=== PATIENT | male | born 1960 | race Caucasian/White ===

== ENCOUNTER 2022-06-30 11:31 | Emergency (ER) | payer SELFPAY ==
[2022-06-30 11:37] VITALS: BP 183/101; PULSE 90; RESP 14; TEMP 36.7; O2SAT 97; BMI 26.6
--- NOTE | 2022-06-30 11:43 | W.ED.GENADLT ---
HPI - General Adult General: Chief complaint: Skin/Abscess/Foreign Body Stated complaint: swelling to both hands Time Seen by Provider: 06/30/22 11:36 History of Present Illness: Mr. Bunch is a 62-year-old gentleman with history of bipolar disorder and COPD presenting to the emergency department for bilateral hand pain and swelling with redness and skin lesions. He reports onset of symptoms approximately 5 weeks ago. He did have contact with a dog that was not lying on his hands however denies specific puncture wound. Since that time he describes a burning painful rash associated with hand swelling which has persisted. Symptoms are worse with palpation and movement. He does also note worsening burning with hot water. Feels generally unwell but no specific signs of systemic illness. Denies similar episodes or skin lesions in the past. No other specific changes in health, exacerbating, or alleviating factors identified. Onset (ago): week(s) Severity: severe Quality: burning and aching Relieving factors: none Exacerbating factors: movement and other (Hot water) Associated symptoms: Reports malaise Review of Systems General: Reports: 10 or more systems reviewed and unremarkable except in HPI and below Const: Reports: malaise [facility] ED PFSH: Medical History Bipolar 1 disorder COPD (chronic obstructive pulmonary disease) Social History Smoking and tobacco status: current every day smoker Physical Exam Const: COMMON NORMALS: alert GENERAL APPEARANCE: cooperative and well developed HENMT: COMMON NORMALS: normocephalic and atraumatic HEAD & SCALP: normocephalic and atraumatic Eye: COMMON NORMALS: conjunctivae normal CONJUNCTIVA: Yes conjunctivae normal SCLERA: sclerae normal Neck/C-Spine: COMMON NORMALS: supple GENERAL: Yes trachea midline Resp: COMMON NORMALS: normal respiratory effort and clear to auscultation bilaterally EFFORT & INSPECTION: Yes able to speak in complete sentences AUSCULTATION: clear to auscultation bilaterally Cardio: COMMON NORMALS: regular rate and regular rhythm RATE: regular rate RHYTHM: regular rhythm GI: COMMON NORMALS: Soft to palpation PALPATION: Yes Soft to palpation and No Tenderness to palpation present (GI) Extremity: NARRATIVE EXTREMITY EXAM: Bilateral hands have nonvesicular/nonpustular erythematous plaques with mild scaling. Mostly a dorsal surface distribution and though there is some palmar distribution as well. There is splits and crusting between the digits and tenderness with range of motion. CMS is intact. No evidence of tenosynovitis. No streaking up the arm. GENERAL: Yes normal exam except as noted and No edema Neuro: COMMON NORMALS: moves all extremities SENSORIUM/ORIENTATION: Yes alert and No Orientation impaired Psych: COMMON NORMALS: mental status grossly normal and Normal thought process present THOUGHT PROCESS: Normal thought process present Course Vital Signs: Vital signs: Vital Signs Temperature 98.1 F 06/30/22 11:37 Pulse Rate 90 06/30/22 11:37 Respiratory Rate 14 06/30/22 11:37 Blood Pressure 183/101 06/30/22 11:37 Pulse Oximetry 97 06/30/22 11:37 Oxygen Delivery Me thod Room Air 06/30/22 11:37 MDM - General Adult Medical Decision Making 62-year-old gentleman presenting to the emergency department for bilateral hand concern. Exam as above. Patient is nontoxic. Labs with no significant hematologic or metabolic abnormalities. Certainly no evidence of sepsis or systemic illness. Mixed clinical picture, highest clinical suspicion for psoriatic arthritis though patient denies history of any sort of skin issues. He also endorses exposure to animal scratches/bites and some of the skin lesions have cracked open raising suspicion of mild superimposed infection. No evidence of deep tissue infection or abscess. Lower suspicion for scabies given distribution and overall clinical appearance however untreated for 5 weeks this could have a crusting scabies appearance. Given duration of symptoms and somewhat mixed clinical picture plan to treat with antibiotics and steroids. I did discuss risk of rebound symptoms with systemic steroids, unfortunately I feel that patient is only limited reliability and may not be particularly compliant with topical medications. Additionally will prescribe permethrin cream if patient fails to improve with other treatments. The results of ED evaluation were discussed with the patient including prescriptions and/or symptomatic cares (if applicable) including appropriate and responsible use, followup plan, and return precautions. The patient verbalized understanding and felt safe for discharge. Medical Records I reviewed the patient's medical records. Lab Data I reviewed the patient's lab results. 06/30/22 12:12 06/30/22 12:12 Laboratory Results WBC 9.0 10^3/uL (4.0-10.0) 06/30/22 12:12 RBC 4.78 10^6/uL (4.1-5.3) 06/30/22 12:12 Hgb 13.6 g/dL (11.7-16.6) 06/30/22 12:12 Hct 42.7 % (42.0-52.0) 06/30/22 12:12 MCV 89.3 fl (80-94) 06/30/22 12:12 MCH 28.5 pg (28.0-34.0) 06/30/22 12:12 MCHC 31.9 g/dL (30.0-36.0) 06/30/22 12:12 RDW 11.6 % (12.1-15.1) L 06/30/22 12:12 Plt Count 314 10^3/cmm (130-400) 06/30/22 12:12 MPV 9.2 fL (7.4-10.4) 06/30/22 12:12 Neut % (Auto) 69.9 % 06/30/22 12:12 Lymph % (Auto) 17.1 % 06/30/22 12:12 [place] % (Auto) 9.8 % 06/30/22 12:12 Eos % (Auto) 2.3 % 06/30/22 12:12 Baso % (Auto) 0.7 % 06/30/22 12:12 Neut # (Auto) 6.31 10^3/uL (1.8-7.7) 06/30/22 12:12 Lymph # (Auto) 1.6 10^3/uL (0.8-4.8) 06/30/22 12:12 [place] # (Auto) 0.9 10^3/uL (0.2-0.9) 06/30/22 12:12 Eos # (Auto) 0.2 10^3/uL (0.0-0.8) 06/30/22 12:12 Baso # (Auto) 0.1 10^3/uL (0.0-0.1) 06/30/22 12:12 Nucleated RBC % (auto) 0 % 06/30/22 12:12 Nucleated RBCs # 0.0 /100WBC 06/30/22 12:12 Sodium 137 mmol/L (136-145) 06/30/22 12:12 Potassium 4.4 mmol/L (3.5-5.1) 06/30/22 12:12 Chloride 102 mmol/L (98-107) 06/30/22 12:12 Carbon Dioxide 24 mmol/L (22-29) 06/30/22 12:12 Anion Gap 15.4 (5-19) 06/30/22 12:12 BUN 11 mg/dL (8-23) 06/30/22 12:12 Creatinine 0.8 mg/dL (0.7-1.2) 06/30/22 12:12 GFR Calculation 98.3 mL/min (90-130) 06/30/22 12:12 Glucose 114 mg/dL (65-115) 06/30/22 12:12 Calculated Osmolality 284 mOsm/kg (285-295) L 06/30/22 12:12 Calcium 9.4 mg/dL (8.5-10.5) 06/30/22 12:12 Total Bilirubin 0.9 mg/dL (0.15-1.2) 06/30/22 12:12 AST 16 U/L (0-40) 06/30/22 12:12 ALT 11 U/L (0-41) 06/30/22 12:12 Alkaline Phosphatase 63 U/L (40-130) 06/30/22 12:12 Total Protein 7.1 g/dL (6.6-8.7) 06/30/22 12:12 Albumin 4.4 g/dL (3.5-5.2) 06/30/22 12:12 Globulin 2.7 g/dL (1.3-4.6) 06/30/22 12:12 Discharge Plan Discharge Patient Disposition: Home Clinical Impression: Rash and nonspecific skin eruption, Bilateral hand pain, Bilateral hand swelling Condition: Stable Prescriptions: New amoxicillin-pot clavulanate 875-125 mg tablet 1 tab PO BID Qty: 20 0RF permethrin 5 % cream 1 applic topical Q14D Qty: 60 0RF Rx Instructions: only if other treatments fail. apply second treatment 14 days after first treatment if needed Discharge Orders: Discharge ED (Routine); Ordered 06/30/22 Ordered By: Sloan Swanson Discharge Diet: Usual diet Discharge Activity: Resume usual activity Activity Restrictions/Additional Instructions: Thank you for visiting the emergency department. You were seen and evaluated for bilateral hand concerns. The exact cause of your symptoms is unclear. There may be superficial skin infection though overall clinical appearance appears more typical of psoriatic arthritis, given no history however this would be less typical. Additional concern after this long of symptoms would be crusting scabies infection. I will prescribe medications. I will prescribe antibiotics and steroids as well as topical steroids. I would expect that this will lead to improvement in the next few days. If you do not see any improvement in the next few days I will also prescribe a antiscabies medication. Only fill this/use it if you do not see improvement with the prior medications. You may use [id number] medications such as acetaminophen and ibuprofen for pain however please do not exceed the daily recommended dosage as listed on the packaging and please keep in mind that many namebrand medications contain the same active ingredients. Please avoid these medications if previously instructed to do so by another physician due to other underlying medical condition. Return to the emergency department for uncontrolled symptoms or anything else that you are concerned about and feel needs emergency department evaluation. Coding Level of Care Code ED Trigonometry Tutor for Luz Matias
[2022-06-30] MEDS: ketorolac 30 mg/mL INJ 15 MG IM (12:26)
[2022-06-30 12:27] LABS: Basophils # 0.1 10^3/uL (0.0-0.1); Basophils % 0.7 %; Eosinophils # 0.2 10^3/uL (0.0-0.8); Eosinophils % 2.3 %; Hematocrit 42.7 % (42.0-52.0); Hemoglobin 13.6 g/dL (11.7-16.6); Lymphocytes # 1.6 10^3/uL (0.8-4.8); Lymphocytes % 17.1 %; Mean Corpuscular HGB Conc 31.9 g/dL (30.0-36.0); Mean Corpuscular Hemoglobin 28.5 pg (28.0-34.0); Mean Corpuscular Volume 89.3 fl (80-94); Mean Platelet Volume 9.2 fL (7.4-10.4); Monocytes # 0.9 10^3/uL (0.2-0.9); Monocytes % 9.8 %; Neutrophils # 6.31 10^3/uL (1.8-7.7); Neutrophils % 69.9 %; Nucleated Red Blood Cells % 0 %; Platelet Count 314 10^3/cmm (130-400); Red Blood Count 4.78 10^6/uL (4.1-5.3); Red Cell Distribution Width 11.6 % (12.1-15.1)
[2022-06-30 12:43] LABS: Alanine Aminotransferase 11 U/L (0-41); Albumin Level 4.4 g/dL (3.5-5.2); Alkaline Phosphatase 63 U/L (40-130); Anion Gap 15.4 (5-19); Aspartate Amino Transferase 16 U/L (0-40); Blood Urea Nitrogen 11 mg/dL (8-23); Calcium 9.4 mg/dL (8.5-10.5); Carbon Dioxide 24 mmol/L (22-29); Chloride 102 mmol/L (98-107); Globulin 2.7 g/dL (1.3-4.6); Glomerular Filtration Rate 98.3 mL/min (90-130); Glucose 114 mg/dL (65-115); Osmolality Calculated 284 mOsm/kg (285-295); Potassium 4.4 mmol/L (3.5-5.1); Sodium 137 mmol/L (136-145); Total Bilirubin 0.9 mg/dL (0.15-1.2); Total Protein 7.1 g/dL (6.6-8.7)
--- NOTE | 2022-07-10 15:28 | DCPLANNER ---
satellite manager called patient due to no primary care physician. Patient stated that he has a provider in [place]
== END 2022-06-30 13:14 | disposition home or self-care (01) ==
PROVIDERS: Emergency Provider Emergency Medicine
DX: M79.89 Other specified soft tissue disorders (principal); M79.642 Pain in left hand; M79.641 Pain in right hand; R21 Rash and other nonspecific skin eruption; J44.9 Chronic obstructive pulmonary disease, unspecified; F17.210 Nicotine dependence, cigarettes, uncomplicated
CPT/HCPCS: 80053; 85025; 96372; 99284; J1885

== ENCOUNTER 2022-08-04 13:18 | Emergency (ER) | payer SELFPAY ==
[2022-08-04 13:21] VITALS: BP 142/88; PULSE 98; RESP 16; TEMP 36.7; O2SAT 97; BMI 28.3
--- NOTE | 2022-08-04 13:38 | XRR_ITS ---
PROCEDURE INFORMATION: Exam: XR Chest Exam date and time: 08/04/2022 1:53 PM Age: 62 years old Clinical indication: Other: Covid symptoms; SOB; Cough TECHNIQUE: Imaging protocol: Radiologic exam of the chest. Views: 1 view. COMPARISON: CR XR chest 1V [id number] 08/21/2018 12:50 PM FINDINGS: Lungs: Unremarkable. No consolidation. Pleural spaces: Unremarkable. No pleural effusion. No pneumothorax. Heart/Mediastinum: Unremarkable. No cardiomegaly. Bones/joints: Visualized osseous structures show no acute abnormality. Other findings: No significant change with previous exam. XR/XR chest 1V portable [id number] IMPRESSION: No acute cardiopulmonary abnormality.
[2022-08-04 14:43] VITALS: O2SAT 97
--- NOTE | 2022-08-04 14:53 | W.ED.COVID ---
HPI - COVID General: Chief Complaint: COVID symptoms Stated Complaint: possible covid Time Seen by Provider: 08/04/22 14:24 History of Present Illness: Patient is a 62-year-old male who comes to the ED with upper respiratory symptoms. Symptoms started approximately 4 days ago. Patient states he has been having a productive cough with a yellowish sputum, chills, fever, body aches, nasal congestion and drainage and fatigue. He also endorses some mild burning type pain in the lungs when he takes a deep breath. Denies any nausea/vomiting, abdominal pain, bladder or bowel symptoms. COVID 19 common symptoms: positive fever(s), chills, productive cough, fatigue and body aches; negative non-productive cough, dyspnea, headache(s), throat pain, nasal congestion, nausea, vomiting or diarrhea COVID 19 other sytmptoms: negative chest pain COVID Results: SARS-CoV-2 Antigen (Rapid) negative (Negative) 08/04/22 14:31 Review of Systems Const: Reports: fever(s), chills, body aches and fatigue Eyes: Denies: change in vision or eye discomfort ENMT: Denies: throat pain, odynophagia, nasal discharge or nasal congestion Card: Denies: chest pain, palpitations, edema, swelling of feet/ankles, dyspnea on exertion or orthopnea Resp: Reports: productive cough and pain on inspiration; Denies: dyspnea or non-productive cough GI: Denies: abdominal pain, nausea, vomiting, diarrhea, constipation or hematochezia : Denies: flank pain, difficulty urinating, dysuria or hematuria Musc: Denies: neck pain, back pain or extremity swelling Skin/Breast: Denies: rash or new lesions Neuro: Denies: headache(s), numbness in extremities or weakness in extremities [facility] ED PFSH: Medical History (Updated 08/06/22 @ 08:44 by TRINI Schuster) Bipolar 1 disorder COPD (chronic obstructive pulmonary disease) No pertinent family history Social History Smoking and tobacco status: current every day smoker Physical Exam Const: COMMON NORMALS: no acute distress, patient oriented x3, healthy appearing and alert GENERAL APPEARANCE: cooperative and comfortable HENMT: COMMON NORMALS: normocephalic HEAD & SCALP: normocephalic MOUTH: Normal oral and palatal mucosa present THROAT: posterior oropharynx normal and uvula midline Neck/C-Spine: COMMON NORMALS: supple GENERAL: Yes normal visual inspection Resp: COMMON NORMALS: normal respiratory effort, No retractions, No use of accessory muscles and clear to auscultation bilaterally AUSCULTATION: clear to auscultation bilaterally Cardio: COMMON NORMALS: regular rate, regular rhythm, S1 normal heart sound present, S2 normal heart sound present, No gallops present (Cardio), No clicks present (Cardio), No murmurs present (Cardio) and Peripheral pulses 2+ throughout RATE: regular rate RHYTHM: regular rhythm HEART SOUNDS: S1 normal heart sound present and S2 normal heart sound present PERIPHERAL PULSES: Peripheral pulses 2+ throughout GI: COMMON NORMALS: Normal to inspection, nondistended, normoactive bowel sounds present, Soft to palpation, non-tender and no masses PALPATION: Yes Soft to palpation : COMMON NORMALS: Yes no CVA tenderness BLADDER/KIDNEY EXAM: Yes no CVA tenderness Back/Pelvis: COMMON NORMALS: no CVA tenderness Extremity: COMMON NORMALS: normal to inspection Neuro: COMMON NORMALS: patient oriented x3 SENSORIUM/ORIENTATION: Yes alert GAIT: Yes Normal gait present Skin: GENERAL SKIN EXAM: dry skin Course Vital Signs: Vital signs: Vital Signs Temperature 98.1 F 08/04/22 13:21 Pulse Rate 98 08/04/22 13:21 Respiratory Rate 16 08/04/22 13:21 Blood Pressure 142/88 08/04/22 13:21 Pulse Oximetry 97 08/04/22 14:43 Oxygen Delivery Me thod Room Air 08/04/22 14:43 MDM - COVID Medical Decision Making Patient is a 62-year-old male who comes to the ED with upper respiratory symptoms. Symptoms started approximately 4 days ago. Patient states he has been having a productive cough with a yellowish sputum, chills, fever, body aches, nasal congestion and drainage and fatigue. He also endorses some mild burning type pain in the lungs when he takes a deep breath. Denies any nausea/vomiting, abdominal pain, bladder or bowel symptoms. vitals stable, pt appears non toxic and in no acute distress. the rest of the exam is benign. covid and influenza negative. chest xray shows no pneumonia. pt diagnosed with bronchitis and dc home with prescription for antibiotic, steroid and inhaler. follow up with pcp in the next 5-7 days for reevaluation. pt understood and agreed with plan. Lab Data I reviewed the patient's lab results. Radiology Impressions Chest X-Ray 08/04/22 13:38 IMPRESSION: No acute cardiopulmonary abnormality. Laboratory Results Influenza Type A Ag negative (Negative) 08/04/22 14:31 Influenza Type B Ag negative (Negative) 08/04/22 14:31 SARS-CoV-2 Ag (Rapid) negative (Negative) 08/04/22 14:31 SARS-CoV-2 Antigen (Rapid) negative (Negative) 08/04/22 14:31 Discharge Plan Discharge Patient Disposition: Home Clinical Impression: Bronchitis Condition: Stable Prescriptions: New azithromycin 250 mg tablet See Rx Instructions .ROUTE .COMPLEX Qty: 6 0RF Rx Instructions: For 250 mg dose pack: take 500 mg today (day 1), then 250 mg for 4 days (days 2-5) prednisone 5 mg tablets,dose pack See Rx Instructions .ROUTE .COMPLEX Qty: 21 0RF Rx Instructions: prednisone 5 mg: take 8 tablets (40 mg) on Day 1; 7 tablets (35 mg) on Day 2; then decrease by 1 tablet every day until finished albuterol sulfate 90 mcg/actuation HFA aerosol inhaler 2 inh inhalation Q6H PRN (Reason: shortness of breath or wheezing) Qty: 8.5 0RF No Action amoxicillin-pot clavulanate 875-125 mg tablet 1 tab PO BID Qty: 20 0RF permethrin 5 % cream 1 applic topical Q14D Qty: 60 0RF Rx Instructions: only if other treatments fail. apply second treatment 14 days after first treatment if needed Discharge Orders: Discharge ED (Routine); Ordered 08/04/22 Ordered By: Moris Godfrey Discharge Diet: Regular Discharge Activity: Increase activity as tolerated Patient Instructions: Acute Bronchitis (ED) Activity Restrictions/Additional Instructions: Follow-up with medical provider as directed in the next 5 to 7 days for reevaluation. Your COVID and influenza swab sent are still pending and results should be back within the next couple hours. Call [facility] later today to find out influenza and COVID test results. Take medications as prescribed. Return to the ER or your medical provider if condition worsens. Please read and understand discharge instructions. Thank you for choosing [facility] for your healthcare needs today. Please realize this is an emergency room and that we are providing you with a medical screening exam and this may not be complete and all inclusive of all the testing and or work up that you may need to determine your ailment or severity of your illness. It is very important that you follow up as instructed or that you return to the Emergency Department should you have concerns or if your condition changes or worsens in any way. Coding Level of Care Code ED Electronic Device Monitor for Luz Matias
[2022-08-04 15:29] LABS: Influenza A by IFA negative (Negative); Influenza B by IFA negative (Negative)
[2022-08-04 15:31] LABS: SARS Covid-2 Antigen negative (Negative)
--- NOTE | 2022-08-16 10:21 | DCPLANNER ---
TCM called patient due to no primary care physician - patient declines, stated that if he wants one will call back.
== END 2022-08-04 15:37 | disposition home or self-care (01) ==
PROVIDERS: Emergency Provider Physician Assistant
DX: J44.9 Chronic obstructive pulmonary disease, unspecified (principal); Z20.822 Contact with and (suspected) exposure to COVID-19; F17.210 Nicotine dependence, cigarettes, uncomplicated
CPT/HCPCS: 71045; 87426; 87804; 99284

== ENCOUNTER 2022-11-05 15:15 | Emergency (ER) | payer SELFPAY ==
[2022-11-05 15:20] VITALS: BP 109/78; PULSE 81; RESP 16; TEMP 36.4; O2SAT 98; BMI 26.6
--- NOTE | 2022-11-05 15:52 | ED_ITS ---
HPI - General Adult General: Chief complaint: General Medical Stated complaint: out of bipolar meds Time Seen by Provider: 11/05/22 15:31 Source: patient Mode of arrival: ambulatory Limitations: no limitations History of Present Illness: Patient is a 62-year-old male who presents to ED today with 2 separate concerns. One of which is a medication refill. He is requesting refills of his famotidine, seroquel, and simvastatin. He states his primary care provider is at [place] and he does not have a PCP here in [place] yet. Patient states he has only been out of his medications a few days. His second complaint is multiple bug bites to his bilateral lower extremities. Patient states he is living out of his van on a family member's property and often walks the property which [place]. He states the lesions are extremely pruritic. Onset (ago): day(s) Severity: mild Relieving factors: none Exacerbating factors: none Associated symptoms: Reports no associated symptoms and rash; Deny chest pain, dyspnea, headache(s), malaise, nausea or vomiting Treatments prior to arrival: none Review of Systems Const: Denies: fever(s), chills, body aches, fatigue or malaise Card: Denies: chest pain Resp: Denies: dyspnea GI: Denies: abdominal pain, nausea, vomiting or diarrhea Musc: Denies: neck pain, back pain, extremity pain or joint pain Skin/Breast: Reports: rash and pruritus Neuro: Denies: headache(s), numbness in extremities, weakness in extremities, sensory changes or dizziness [facility] ED PFSH: Medical History Bipolar 1 disorder COPD (chronic obstructive pulmonary disease) No pertinent family history Social History Smoking and tobacco status: current every day smoker Physical Exam Const: COMMON NORMALS: no acute distress, average body habitus, patient oriented x3, no limitations, alert and well nourished Resp: COMMON NORMALS: normal respiratory effort and clear to auscultation bilaterally AUSCULTATION: clear to auscultation bilaterally Cardio: COMMON NORMALS: regular rate and regular rhythm RATE: regular rate RHYTHM: regular rhythm Extremity: GENERAL: Yes normal exam except as noted OTHER: countless small bite like lesions to bilateral LEs; some small vesicular lesions consistent with acute bites, many of them are excoriated/scabbed; none between toe webbings; does not appear consistent with scabies; most likely these are chigger bites Neuro: COMMON NORMALS: patient oriented x3, moves all extremities, no focal motor deficits, no sensory deficits noted and gait normal SENSORIUM/ORIENTATION: Yes alert Course Vital Signs: Vital signs: Vital Signs Temperature 97.6 F 11/05/22 15:20 Pulse Rate 81 11/05/22 16:19 Respiratory Rate 16 11/05/22 16:19 Blood Pressure 109/78 11/05/22 16:19 Pulse Oximetry 98 11/05/22 16:19 Oxygen Delivery Me thod Room Air 11/05/22 15:20 MDM - General Adult Medical Decision Making Patient was provided refills of his medications. We will case management set him up with primary care provider for further care. Explained to him how we would not refill additional medications from the ED. We discussed treatment for his lower extremity insect bites including hydrocortisone cream, topical Benadryl, oral Benadryl if needed. Discharge Plan Discharge Patient Disposition: Home Clinical Impression: Insect bite, multiple, Bipolar 1 disorder, Medication refill Condition: Stable Prescriptions: New simvastatin 40 mg tablet 40 mg PO DAILY Qty: 20 0RF Seroquel 200 mg tablet 200 mg PO BID Qty: 40 0RF famotidine 40 mg tablet 40 mg PO BID Qty: 40 0RF Discontinued azithromycin 250 mg tablet See Rx Instructions .ROUTE .COMPLEX Qty: 6 0RF Rx Instructions: For 250 mg dose pack: take 500 mg today (day 1), then 250 mg for 4 days (days 2-5) prednisone 5 mg tablets,dose pack See Rx Instructions .ROUTE .COMPLEX Qty: 21 0RF Rx Instructions: prednisone 5 mg: take 8 tablets (40 mg) on Day 1; 7 tablets (35 mg) on Day 2; then decrease by 1 tablet every day until finished albuterol sulfate 90 mcg/actuation HFA aerosol inhaler 2 inh inhalation Q6H PRN (Reason: shortness of breath or wheezing) Qty: 8.5 0RF amoxicillin-pot clavulanate 875-125 mg tablet 1 tab PO BID Qty: 20 0RF permethrin 5 % cream 1 applic topical Q14D Qty: 60 0RF Rx Instructions: only if other treatments fail. apply second treatment 14 days after first treatment if needed Discharge Orders: Discharge ED (Routine); Ordered 11/05/22 Ordered By: Talita Gautam Coding Level of Care Code ED Cigarette Maker for Luz Matias
[2022-11-05 16:19] VITALS: BP 109/78; PULSE 81; RESP 16; O2SAT 98
--- NOTE | 2022-11-06 10:16 | DCPLANNER ---
sales marketing manager had message to speak with patient about getting established with a primary care physician. sales marketing manager unable to speak with patient at this time, a message was left for patient to return caseworker phone call.
== END 2022-11-05 16:22 | disposition home or self-care (01) ==
PROVIDERS: Emergency Provider Physician Assistant
DX: S80.862A Insect bite (nonvenomous), left lower leg, initial encounter (principal); S80.861A Insect bite (nonvenomous), right lower leg, initial encounter; Z76.0 Encounter for issue of repeat prescription; F31.9 Bipolar disorder, unspecified; J44.9 Chronic obstructive pulmonary disease, unspecified; Z79.899 Other long term (current) drug therapy
CPT/HCPCS: 99284

== ENCOUNTER 2022-11-12 13:50 | Emergency (ER) | payer SELFPAY ==
[2022-11-12 14:07] VITALS: BP 138/88; PULSE 96; RESP 16; TEMP 36.8; O2SAT 98; BMI 25.8
--- NOTE | 2022-11-12 14:17 | W.ED.FALL ---
HPI - Fall General: Chief Complaint: Fall Stated Complaint: fall, disoriented, pain all over Time Seen by Provider: 11/12/22 14:16 Source: patient Mode of arrival: ambulatory Limitations: no limitations History of Present Illness: Patient is a 62-year-old male who presents to ED today for evaluation following a fall. Patient states yesterday he was climbing up a flight of stairs at his brother's house when he accidentally tripped. He states instead of falling straight backwards he fell onto his left side to try to catch himself. He reports sustaining minor abrasions to the left side of his scalp and face. He denies loss of consciousness. He is not complaining of a headache. He reports some muscle pain overlying his bilateral posterior shoulders although range of motion seems to be normal in these areas. He sustained a skin tear to his left forearm. He complains of left wrist and hand pain and swelling. Last tetanus is unknown. He denies back pain. He is ambulatory without difficulty or assistance. Denies neck pain. MD complaint: fall Onset (ago): day(s) (yesterday) Fall from: down stairs (#) Fall witnessed: no Place fall occurred: home (brother's house) Loss of consciousness: None Prolonged down time: no Symptoms prior to fall: none Context: tripped/slipped Location of injury: head, face and neck Location of injury - extremities: Left: forearm and hand Associated symptoms-after fall: Denies abdominal pain, chest pain, confusion, difficulty walking, headache(s), hematuria or neck pain Review of Systems Eyes: Denies: change in vision, blurry vision, photophobia, floaters or seeing flashes ENMT: Denies: ear discharge, nasal congestion or sinus pain Card: Denies: chest pain Resp: Denies: dyspnea GI: Reports: nausea; Denies: abdominal pain, vomiting or diarrhea : Denies: flank pain or hematuria Musc: Reports: extremity pain (L hand), extremity swelling (L hand), joint pain (L wrist, bilateral shoulder pain) and joint swelling (L wrist); Denies: neck pain or back pain Skin/Breast: Reports: other (skin tear L forearm, minor abrasions to face/scalp) Neuro: Denies: headache(s), numbness in extremities, weakness in extremities, sensory changes, lack of coordination, difficulty walking, dizziness, confusion, behavioral changes or difficulty communicating thoughts PFSH ED PFSH: Medical History Bipolar 1 disorder COPD (chronic obstructive pulmonary disease) No pertinent family history Social History Smoking and tobacco status: current every day smoker Physical Exam Const: COMMON NORMALS: no acute distress, average body habitus, patient oriented x3, no limitations, healthy appearing, alert and well nourished GENERAL APPEARANCE: cooperative ORIENTATION/CONSCIOUSNESS: Yes awake, Yes oriented to person, Yes oriented to place and Yes oriented to time HENMT: COMMON NORMALS: normocephalic, atraumatic, TM's normal bilaterally and Normal external nose present HEAD & SCALP: normal to inspection, normocephalic, atraumatic and other (minor abrasion L scalp/L face); no Canseco's sign, no hematoma and no raccoon eyes FACE & SINUS: normal facial exam NOSE: Normal external nose present TYMPANIC MEMBRANE: TM's normal bilaterally MOUTH: other (no intraoral injuries noted) Eye: COMMON NORMALS: Equal, round and reactive pupils present and EOMs intact bilaterally GENERAL EYE: appearance normal, both eyes and all related structures and normal light reflex PUPIL: Yes Equal, round and reactive pupils present DIRECT OPHTHALMOSCOPY: Yes normal light reflex Neck/C-Spine: COMMON NORMALS: full ROM GENERAL: Yes normal visual inspection CERVICAL SPINE: Yes cervical ROM normal, Yes pain with cervical ROM (to bilateral trapezius muscle), No Cervical spine tenderness, No step off deformity and No Paracervical muscle tenderness Chest: COMMONS NORMALS: normal inspection of the chest and normal palpation of entire chest wall Resp: COMMON NORMALS: normal respiratory effort and clear to auscultation bilaterally AUSCULTATION: clear to auscultation bilaterally Cardio: COMMON NORMALS: regular rate and regular rhythm RATE: regular rate RHYTHM: regular rhythm GI: COMMON NORMALS: Normal to inspection, nondistended, normoactive bowel sounds present, Soft to palpation, non-tender, No hepatosplenomegaly present and no masses INSPECTION: Yes normal to inspection and No abdominal wall ecchymosis AUSCULTATION: Yes normoactive bowel sounds PALPATION: Yes Soft to palpation and Yes No hepatosplenomegaly present Back/Pelvis: COMMON NORMALS: thoracic and lumbar spine normal to inspection, no thoracic nor lumbar tenderness and thoraco-lumbar ROM normal Extremity: COMMON NORMALS: capillary refill normal GENERAL: Yes normal exam except as noted LEFT UPPER EXTREMITY: Yes wrist and Yes hand & digits OTHER: diffuse swelling/tenderness to L wrist/hand without erythema/warmth; normal cap refill, pulses, sensation large skin tear noted to dorsal L distal forearm w/o signs of infection Neuro: DOMINGA COMA SCALE: document GCS findings [place] coma scale eye opening: Spontaneous [place] coma scale verbal response: Orientated [place] coma scale motor response: Obey commands [place] coma scale total score: 15 COMMON NORMALS: patient oriented x3, CN's II-XII intact bilaterally, moves all extremities, no focal motor deficits, no sensory deficits noted and gait normal SENSORIUM/ORIENTATION: Yes alert, Yes oriented to person, Yes oriented to place and Yes oriented to time SPEECH: speech normal GAIT: Yes Normal gait present Skin: COMMON NORMALS: no rashes or lesions noted GENERAL SKIN EXAM: no rashes or lesions noted TRAUMA: abrasion and other (skin tear L forearm) Course Vital Signs: Vital signs: Vital Signs Temperature 98.2 F 11/12/22 14:07 Pulse Rate 96 11/12/22 14:07 Respiratory Rate 16 11/12/22 14:07 Blood Pressure 138/88 11/12/22 14:07 Pulse Oximetry 98 11/12/22 14:07 Oxygen Delivery Me thod Room Air 11/12/22 14:07 MDM - Fall Medical Decision Making XRs negative. Skin tear cleaned/dressed. He is worried about the dirty environment in which he cut it-will cover with abx. Recommend ice/elevation/NSAIDS for left wrist/hand swelling. Return to ED precautions given. Can follow up with PCP in 3-5 days if symptoms fail to improve. Discharge Plan Discharge Patient Disposition: Home Clinical Impression: Fall on same level from tripping, Sprain and strain of left wrist Skin tear of left forearm without complication Qualifiers: Encounter type: initial encounter Qualified Code(s): S51.812A - Laceration without foreign body of left forearm, initial encounter Condition: Stable Prescriptions: New cephalexin 500 mg capsule 500 mg PO Q6H 7 Days Qty: 28 0RF No Action simvastatin 40 mg tablet 40 mg PO DAILY Qty: 20 0RF quetiapine [Seroquel] 200 mg tablet 200 mg PO BID Qty: 40 0RF famotidine 40 mg tablet 40 mg PO BID Qty: 40 0RF Aspir-81 81 mg Tablet,Delayed Release (Dr/Ec) 81 mg PO DAILY Discharge Orders: Discharge ED (Routine); Ordered 11/12/22 Ordered By: Talita Gautam Activity Restrictions/Additional Instructions: As we discussed you may ice and elevate wrist and hand to help with swelling. You may begin antibiotics to cover for infection in regards to the large skin tear on your forearm. As we discussed you may also start taking rgyv-vog-[id number] anti-inflammatories such as ibuprofen/Motrin to help with swelling. Please follow-up with your primary care provider if swelling continues to worsen or fails to improve or if you begin noticing redness, warmth, red streaking up your arm, fevers, or any other concerns you may have. Your tetanus was updated today. Coding Level of Care Code ED Functional Analyst for Luz Matias
--- NOTE | 2022-11-12 15:14 | XR_ITS ---
WS: [id number] CERVICAL SPINE 3 VIEWS HISTORY: fall/neck pain COMPARISON: None available. Normal cervical alignment with no fracture or destructive process. Disc spaces and vertebral body heights are well-maintained. Soft tissues are normal. IMPRESSION: Normal cervical spine.
--- NOTE | 2022-11-12 15:14 | XR_ITS ---
WS: [id number] LEFT HAND: 3 VIEW(S) TECHNIQUE: PA, oblique and lateral. HISTORY: fall/left hand pain COMPARISON: None available. No acute fracture or dislocation. Mild interphalangeal joint space narrowing. IMPRESSION: Mild osteoarthritis. No fracture.
--- NOTE | 2022-11-12 15:14 | XR_ITS ---
WS: [id number] LEFT WRIST: 4 VIEW(S) TECHNIQUE: PA, oblique and lateral. Scaphoid view. HISTORY: fall/left wrist pain COMPARISON: None available. No acute fracture or dislocation. Normal scaphoid. No joint space abnormality. No soft tissue swelling. IMPRESSION: Negative LEFT wrist.
[2022-11-12] MEDS: tetanus-dipt-pertussis 0.5 mL SDV IM (15:32)
--- NOTE | 2022-11-12 16:04 | PC.NURSE ---
cleansed skin tear to left arm with NS and guaze, covered with non stick dressing, wrapped with rolled gauze and secured with tape
== END 2022-11-12 16:06 | disposition home or self-care (01) ==
PROVIDERS: Emergency Provider Physician Assistant
DX: S51.812A Laceration without foreign body of left forearm, initial encounter (principal); S63.502A Unspecified sprain of left wrist, initial encounter; S66.912A Strain of unspecified muscle, fascia and tendon at wrist and hand level, left hand, initial encounter; Z79.82 Long term (current) use of aspirin; J44.9 Chronic obstructive pulmonary disease, unspecified; F17.210 Nicotine dependence, cigarettes, uncomplicated; W10.8XXA Fall (on) (from) other stairs and steps, initial encounter; Z23 Encounter for immunization
CPT/HCPCS: 72040; 73110; 73130; 90471; 90715; 99284

== ENCOUNTER 2023-03-18 15:27 | Emergency (ER) | payer SELFPAY ==
[2023-03-18 15:36] VITALS: BP 152/90; PULSE 106; RESP 16; TEMP 36.6; O2SAT 97; BMI 27.4
--- NOTE | 2023-03-18 15:42 | W.ED.RECABL ---
HPI - Recheck/Abnormal Lab/Rx General: Chief Complaint: Recheck/Abnormal Lab/Rx Stated Complaint: from [place],out of acid relex & bipolar meds/MHE Time Seen by Provider: 03/18/23 15:28 Source: patient Mode of arrival: ambulatory Limitations: no limitations History of Present Illness: 62-year-old male is here from [facility] states he is out of his Seroquel and famotidine he states he is not going back to [place] for 2 weeks since worse physician's and was wanting to get it refilled he has no other medical complaints at this time Review of Systems Const: Denies: fever(s) or chills ENMT: Denies: throat pain or dental pain Card: Denies: chest pain GI: Denies: abdominal pain, nausea, vomiting or diarrhea Musc: Denies: neck pain or back pain Neuro: Denies: headache(s) PFSH ED PFSH: Medical History No pertinent family history COPD (chronic obstructive pulmonary disease) Bipolar 1 disorder Social History Smoking and tobacco/nicotine status: current every day tobacco/nicotine user Physical Exam Const: COMMON NORMALS: no acute distress, patient oriented x3 and healthy appearing HENMT: COMMON NORMALS: normocephalic and atraumatic HEAD & SCALP: normocephalic and atraumatic Eye: COMMON NORMALS: conjunctivae normal CONJUNCTIVA: Yes conjunctivae normal Chest: COMMONS NORMALS: normal inspection of the chest Resp: COMMON NORMALS: normal respiratory effort Extremity: COMMON NORMALS: normal to inspection Neuro: COMMON NORMALS: patient oriented x3 Psych: COMMON NORMALS: mental status grossly normal, Normal thought process present and cooperative THOUGHT PROCESS: Normal thought process present Skin: COMMON NORMALS: no rashes or lesions noted and no wounds GENERAL SKIN EXAM: no rashes or lesions noted Course Vital Signs: Vital signs: Vital Signs Temperature 97.9 F 03/18/23 15:36 Pulse Rate 106 H 03/18/23 15:36 Respiratory Rate 16 03/18/23 15:36 Blood Pressure 152/90 03/18/23 15:36 Pulse Oximetry 97 03/18/23 15:36 Oxygen Delivery Me thod Room Air 03/18/23 15:36 MDM - Recheck/Abnormal Lab/Rx Medical Decision Making Patient presents here for medication refill we will refill his Seroquel and famotidine he is stable for discharge follow-up PCP return if worsening Medical Records I reviewed the patient's medical records. No radiology studies performed this visit Discharge Plan Discharge Patient Disposition: Home Clinical Impression: Medication refill Condition: Stable Prescriptions: Continued famotidine 40 mg tablet 40 mg PO BID Qty: 60 0RF Seroquel 200 mg tablet 200 mg PO BID Qty: 60 0RF No Action simvastatin 40 mg tablet 40 mg PO DAILY Qty: 20 0RF Aspir-81 81 mg Tablet,Delayed Release (Dr/Ec) 81 mg PO DAILY Discharge Orders: Discharge ED (Routine); Ordered 03/18/23 Ordered By: Pablo Manzanares Discharge Diet: Advance as tolerated Discharge Activity: Resume usual activity Patient Instructions: Medicine Refill (ED) Coding Level of Care Code ED Animal Laboratory Technician for Luz Matias
== END 2023-03-18 16:00 | disposition home or self-care (01) ==
PROVIDERS: Emergency Provider Emergency Medicine
DX: Z76.0 Encounter for issue of repeat prescription (principal); Z79.82 Long term (current) use of aspirin; J44.9 Chronic obstructive pulmonary disease, unspecified; F31.9 Bipolar disorder, unspecified; Z72.0 Tobacco use
CPT/HCPCS: 99281

== ENCOUNTER 2023-04-25 16:27 | Emergency (ER) | payer SELFPAY ==
[2023-04-25 16:31] VITALS: BP 125/74; PULSE 84; RESP 14; TEMP 36.7; O2SAT 99
[2023-04-25 16:41] VITALS: BP 152/94; PULSE 91; RESP 14; O2SAT 99
--- NOTE | 2023-04-25 16:45 | ED_ITS ---
HPI - Recheck/Abnormal Lab/Rx General: Chief Complaint: Recheck/Abnormal Lab/Rx Stated Complaint: MHE Time Seen by Provider: 04/25/23 16:42 Source: patient Mode of arrival: ambulatory Limitations: no limitations History of Present Illness: 63-year-old male is here from [place] [facility] he is not going to be back in [place] for 2 more weeks states he is out of his Seroquel he states he is not able to sleep without it he is requesting Seroquel refill. He has no other complaints at this time Review of Systems Const: Denies: fever(s), chills, body aches or change in appetite ENMT: Denies: throat pain or dental pain Card: Denies: chest pain Resp: Denies: dyspnea GI: Denies: abdominal pain, nausea, vomiting or diarrhea Musc: Denies: neck pain or back pain Skin/Breast: Denies: rash Neuro: Denies: headache(s) Psych: Reports: sleeping less [facility] ED PFSH: Medical History No pertinent family history COPD (chronic obstructive pulmonary disease) Bipolar 1 disorder Social History Smoking and tobacco/nicotine status: current every day tobacco/nicotine user Physical Exam Const: COMMON NORMALS: no acute distress, patient oriented x3 and healthy appearing HENMT: COMMON NORMALS: normocephalic and atraumatic HEAD & SCALP: normocephalic and atraumatic Neck/C-Spine: COMMON NORMALS: full ROM and supple Chest: COMMONS NORMALS: normal inspection of the chest Resp: COMMON NORMALS: normal respiratory effort Cardio: COMMON NORMALS: regular rate RATE: regular rate Extremity: COMMON NORMALS: normal to inspection and full ROM Neuro: COMMON NORMALS: patient oriented x3, moves all extremities and no focal motor deficits Psych: COMMON NORMALS: mental status grossly normal, Normal thought process present and cooperative THOUGHT PROCESS: Normal thought process present Skin: COMMON NORMALS: no rashes or lesions noted and no wounds GENERAL SKIN EXAM: no rashes or lesions noted Course Vital Signs: Vital signs: Vital Signs Temperature 98.0 F 04/25/23 16:31 Pulse Rate 91 04/25/23 16:41 Respiratory Rate 14 04/25/23 16:41 Blood Pressure 152/94 04/25/23 16:41 Pulse Oximetry 99 04/25/23 16:41 Oxygen Delivery Me thod Room Air 04/25/23 16:41 MDM - Recheck/Abnormal Lab/Rx Medical Decision Making Patient presents here for medication refill he is well-appearing here with no complaints we will refill his Seroquel follow-up PCP and return if worsening. Medical Records I reviewed the patient's medical records. No radiology studies performed this visit Discharge Plan Discharge Patient Disposition: Home Clinical Impression: Encounter for medication refill Condition: Stable Prescriptions: Continued Seroquel 200 mg tablet 200 mg PO BID Qty: 60 0RF No Action famotidine 40 mg tablet 40 mg PO BID Qty: 60 0RF simvastatin 40 mg tablet 40 mg PO DAILY Qty: 20 0RF Aspir-81 81 mg Tablet,Delayed Release (Dr/Ec) 81 mg PO DAILY Discharge Orders: Discharge ED (Routine); Ordered 04/25/23 Ordered By: Pablo Manzanares Discharge Diet: Advance as tolerated Discharge Activity: Resume usual activity Patient Instructions: Medicine Refill (ED) Coding Level of Care Code ED Operating Room Coordinator for Luz Matias
[2023-04-25 16:51] VITALS: BP 153/92; PULSE 86; O2SAT 98
== END 2023-04-25 16:52 | disposition home or self-care (01) ==
PROVIDERS: Emergency Provider Emergency Medicine
DX: Z76.0 Encounter for issue of repeat prescription (principal); Z79.82 Long term (current) use of aspirin; J44.9 Chronic obstructive pulmonary disease, unspecified; Z72.0 Tobacco use
CPT/HCPCS: 99281

== ENCOUNTER 2024-02-24 14:21 | Emergency (ER) | payer SELFPAY ==
[2024-02-24 14:38] VITALS: BP 144/81; PULSE 77; RESP 17; TEMP 36.7; O2SAT 96
--- NOTE | 2024-02-24 14:53 | ED_ITS ---
HPI - Recheck/Abnormal Lab/Rx General: Chief Complaint: General Medical Stated Complaint: med refills? Time Seen by Provider: 02/24/24 14:43 Source: patient Mode of arrival: ambulatory Limitations: no limitations History of Present Illness: Patient is a nice 63-year-old male here requesting refills of his Famotidine and Seroquel. He states he is in town today with his sister for the and is almost out of his medications. He has no physical complaints at this time. MD complaint: medication refill request Returns today for: request for prescription Symptoms since prior visit: no new symptoms Associated symptoms: none Related Data Home Medications Medication Instructions Recorded Confirmed aspirin 81 mg tablet,delayed 81 mg PO DAILY 11/12/22 11/12/22 release Previous Rx's Medication Instructions Recorded simvastatin 40 mg tablet 40 mg PO DAILY #20 tabs 11/05/22 famotidine 40 mg tablet 40 mg PO BID #60 tabs 02/24/24 quetiapine 200 mg tablet (Seroquel) 200 mg PO BID #60 tabs 02/24/24 Allergies Allergy/AdvReac Type Severity Reaction Status Date / Time Sulfa (Sulfonamide Allergy ADR-Agitate Verified 03/18/23 15:36 Antibiotics) d Review of Systems Const: Denies: fever(s) Card: Denies: chest pain Resp: Denies: dyspnea GI: Denies: abdominal pain, nausea or vomiting Psych: Denies: depression, hopelessness, suicidal ideation or homicidal ideation PFS ED PFSH: Medical History No pertinent family history COPD (chronic obstructive pulmonary disease) Bipolar 1 disorder Social History Smoking and tobacco/nicotine status: current every day tobacco/nicotine user Physical Exam Const: COMMON NORMALS: no acute distress, average body habitus, patient oriented x3, no limitations, healthy appearing, alert and well nourished Neuro: DOMINGA COMA SCALE: document GCS findings [place] coma scale eye opening: Spontaneous [place] coma scale verbal response: Orientated [place] coma scale motor response: Obey commands [place] coma scale total score: 15 COMMON NORMALS: patient oriented x3, moves all extremities, no focal motor deficits, no sensory deficits noted and gait normal SENSORIUM/ORIENTATION: Yes alert Course Vital Signs: Vital signs: Vital Signs Temperature 98.1 F 02/24/24 14:38 Pulse Rate 77 02/24/24 14:38 Respiratory Rate 17 02/24/24 14:38 Blood Pressure 144/81 02/24/24 14:38 Pulse Oximetry 96 02/24/24 14:38 Oxygen Delivery Me thod Room Air 02/24/24 14:38 MDM - Recheck/Abnormal Lab/Rx Medical Decision Making Refills of his medication provided. Recommend he follow-up with his primary care provider when he returns home. Differential Diagnosis Likely encounter for medication refill No radiology studies performed this visit Discharge Plan Discharge Patient Disposition: Home Clinical Impression: Prescription refill Condition: Stable Prescriptions: Continued famotidine 40 mg tablet 40 mg PO BID Qty: 60 0RF quetiapine [Seroquel] 200 mg tablet 200 mg PO BID Qty: 60 0RF No Action simvastatin 40 mg tablet 40 mg PO DAILY Qty: 20 0RF Aspir-81 81 mg Tablet,Delayed Release (Dr/Ec) 81 mg PO DAILY Discharge Orders: Discharge ED (Routine); Ordered 02/24/24 Ordered By: Talita Gautam Coding Level of Care Code ED Sampling Theory Teacher for Luz Matias
== END 2024-02-24 15:09 | disposition home or self-care (01) ==
PROVIDERS: Emergency Provider Physician Assistant
DX: Z76.0 Encounter for issue of repeat prescription (principal); Z72.0 Tobacco use; J44.9 Chronic obstructive pulmonary disease, unspecified
CPT/HCPCS: 99281

== ENCOUNTER 2024-03-28 17:39 | Emergency (ER) | payer SELFPAY ==
[2024-03-28 17:56] VITALS: BP 151/104; PULSE 89; RESP 16; TEMP 36.9; O2SAT 98
--- NOTE | 2024-03-28 18:07 | ED_ITS ---
HPI - General Adult General: Chief complaint: General Medical Stated complaint: require meds refill Time Seen by Provider: 03/28/24 17:53 History of Present Illness: Patient is a 63-year-old man that presents to the emergency department for refill of his Seroquel and famotidine. Patient is from out of town here longer than planned. He has plans to return to [facility], and his primary care, at the end of April. Associated symptoms: Deny chest pain, dyspnea, nausea or vomiting Related Data Home Medications Medication Instructions Recorded Confirmed aspirin 81 mg tablet,delayed 81 mg PO DAILY 11/12/22 11/12/22 release Previous Rx's Medication Instructions Recorded simvastatin 40 mg tablet 40 mg PO DAILY #20 tabs 11/05/22 famotidine 40 mg tablet 40 mg PO BID #60 tabs 02/24/24 quetiapine 200 mg tablet (Seroquel) 200 mg PO BID #60 tabs 02/24/24 famotidine 40 mg tablet 40 mg PO BID #60 tabs 03/28/24 quetiapine 200 mg tablet (Seroquel) 200 mg PO BID #60 tabs 03/28/24 Allergies Allergy/AdvReac Type Severity Reaction Status Date / Time Sulfa (Sulfonamide Allergy ADR-Agitate Verified 03/18/23 15:36 Antibiotics) d Review of Systems Const: Denies: fever(s) Card: Denies: chest pain Resp: Denies: dyspnea GI: Denies: abdominal pain, nausea or vomiting Psych: Denies: depression, hopelessness, suicidal ideation or homicidal ideation [facility] ED PFSH: Medical History No pertinent family history COPD (chronic obstructive pulmonary disease) Bipolar 1 disorder Social History Smoking and tobacco/nicotine status: current every day tobacco/nicotine user Physical Exam Const: COMMON NORMALS: no acute distress, average body habitus, patient oriented x3, no limitations, healthy appearing, alert and well nourished Neuro: DOMINGA COMA SCALE: document GCS findings [place] coma scale eye opening: Spontaneous [place] coma scale verbal response: Orientated [place] coma scale motor response: Obey commands [place] coma scale total score: 15 COMMON NORMALS: patient oriented x3, moves all extremities, no focal motor deficits, no sensory deficits noted and gait normal SENSORIUM/ORIENTATION: Yes alert Course Vital Signs: Vital signs: Vital Signs Temperature 98.4 F 03/28/24 17:56 Pulse Rate 89 03/28/24 17:56 Respiratory Rate 16 03/28/24 17:56 Blood Pressure 151/104 03/28/24 17:56 Pulse Oximetry 98 03/28/24 17:56 MDM - General Adult Medical Decision Making Presents to the emergency department for medication refill. Patient is from out of town and will be here through April. He is asking for medication refills on Seroquel and famotidine. No radiology studies performed this visit Discharge Plan Discharge Patient Disposition: Home Condition: Stable Prescriptions: New quetiapine [Seroquel] 200 mg tablet 200 mg PO BID Qty: 60 0RF famotidine 40 mg tablet 40 mg PO BID Qty: 60 0RF No Action simvastatin 40 mg tablet 40 mg PO DAILY Qty: 20 0RF Aspir-81 81 mg Tablet,Delayed Release (Dr/Ec) 81 mg PO DAILY famotidine 40 mg tablet 40 mg PO BID Qty: 60 0RF quetiapine [Seroquel] 200 mg tablet 200 mg PO BID Qty: 60 0RF Discharge Orders: Discharge ED (Routine); Ordered 03/28/24 Ordered By: Moses Bruce Discharge Diet: Advance as tolerated Discharge Activity: Resume usual activity Activity Restrictions/Additional Instructions: Abdominal pain please take your medications as prescribed and please follow-up with primary care when you return home to [place]. Coding Level of Care Code ED Interpersonal Communications Professor for Luz Matias
== END 2024-03-28 18:15 | disposition home or self-care (01) ==
PROVIDERS: Emergency Provider Nurse Practitioner
DX: Z76.0 Encounter for issue of repeat prescription (principal); J44.9 Chronic obstructive pulmonary disease, unspecified; Z72.0 Tobacco use
CPT/HCPCS: 99281

== ENCOUNTER 2024-05-05 16:48 | Emergency (ER) | payer SELFPAY ==
[2024-05-05 16:54] VITALS: BP 151/85; PULSE 81; TEMP 36.6; O2SAT 100; BMI 27.4
--- NOTE | 2024-05-05 17:15 | W.ED.RECABL ---
HPI - Recheck/Abnormal Lab/Rx General: Chief Complaint: Recheck/Abnormal Lab/Rx Stated Complaint: need refill on meds Time Seen by Provider: 05/05/24 17:05 Source: patient Mode of arrival: ambulatory Limitations: no limitations History of Present Illness: Patient is a 64-year-old male who presents the emergency department requesting medication refill. States his primary care is out in [place], he is not going back into the end of the month. States that he ran out of his famotidine would like a refill. Also wants his hands looked at as he has been having itching and burning to his bilateral hands. States he has been living out of his van on his brother's property, this has been worsening over the past few days and is specifically worsened when running his hands under hot water. No fever, chest pain or shortness of breath, or other symptoms reported. States he has tried wnxa-arm-yriwdnt remedies that have not helped. MD complaint: medication refill request (Famotidine) Related Data Home Medications ?Medication ?Instructions ?Recorded ?Confirmed aspirin 81 mg tablet,delayed 81 mg PO DAILY 11/12/22 11/12/22 release Previous Rx's ?Medication ?Instructions ?Recorded simvastatin 40 mg tablet 40 mg PO DAILY #20 tabs 11/05/22 quetiapine 200 mg tablet (Seroquel) 200 mg PO BID #60 tabs 02/24/24 famotidine 40 mg tablet 40 mg PO BID #60 tabs 03/28/24 quetiapine 200 mg tablet (Seroquel) 200 mg PO BID #60 tabs 03/28/24 famotidine 40 mg tablet 40 mg PO BID #60 tabs 05/05/24 permethrin 5 % topical cream 1 applic topical Q14D 2 doses #60 05/05/24 grams triamcinolone acetonide 0.5 % 1 applic topical BID #15 grams 05/05/24 topical ointment Allergies Allergy/AdvReac Type Severity Reaction Status Date / Time Sulfa (Sulfonamide Allergy ADR-Agitate Verified 05/05/24 16:59 Antibiotics) d Review of Systems General: Reports: 10 or more systems reviewed and unremarkable except in HPI and below Const: Reports: other (Request for medication refill); Denies: fever(s) or chills Card: Denies: chest pain Resp: Denies: dyspnea GI: Denies: abdominal pain, nausea, vomiting or diarrhea Musc: Denies: extremity pain or joint pain Skin/Breast: Reports: pruritus and erythema; Denies: rash, skin pain, skin tenderness or new lesions Neuro: Denies: headache(s) PFSH ED PFSH: Medical History No pertinent family history COPD (chronic obstructive pulmonary disease) Bipolar 1 disorder Social History Smoking and tobacco/nicotine status: current every day tobacco/nicotine user Physical Exam Const: COMMON NORMALS: no acute distress, average body habitus, patient oriented x3, no limitations, healthy appearing, alert and well nourished HENMT: COMMON NORMALS: normocephalic and atraumatic HEAD & SCALP: normocephalic and atraumatic Neck/C-Spine: COMMON NORMALS: full ROM, no lymphadenopathy, supple and no meningeal signs Resp: COMMON NORMALS: normal respiratory effort, No use of accessory muscles and clear to auscultation bilaterally AUSCULTATION: clear to auscultation bilaterally Cardio: COMMON NORMALS: regular rate and regular rhythm RATE: regular rate RHYTHM: regular rhythm Extremity: COMMON NORMALS: full ROM and capillary refill normal Neuro: COMMON NORMALS: patient oriented x3 SENSORIUM/ORIENTATION: Yes alert MENINGEAL SIGNS: Yes no meningeal signs Skin: COMMON NORMALS: no wounds and turgor normal NARRATIVE SKIN EXAM: The patient's bilateral hands, there is scattered crusting and appearance of linear burrows between webspaces. Lichenification from prior itching GENERAL SKIN EXAM: turgor normal Course Vital Signs: Vital signs: Vital Signs Temperature 97.8 F 05/05/24 16:54 Pulse Rate 81 05/05/24 16:54 Blood Pressure 151/85 05/05/24 16:54 Pulse Oximetry 100 05/05/24 16:54 Oxygen Delivery Me thod Room Air 05/05/24 16:54 MDM - Recheck/Abnormal Lab/Rx Medical Decision Making Will refill patient's famotidine. With his complaints of his hand itching and redness this does appear to be scabies in the history is concerning for this, informed him to thoroughly wash all clothing and bedding in hot water and we will start him on permethrin. Instructed him to follow-up with primary care back in [place] for general reevaluation. All other questions and concerns addressed. No radiology studies performed this visit Discharge Plan Discharge Patient Disposition: Home Clinical Impression: Encounter for medication refill, Scabies Condition: Stable Prescriptions: New permethrin 5 % cream 1 applic topical Q14D Qty: 60 0RF Rx Instructions: apply second treatment 14 days after first treatment if live lice remain triamcinolone acetonide 0.5 % ointment 1 applic topical BID Qty: 15 0RF Continued famotidine 40 mg tablet 40 mg PO BID Qty: 60 1RF No Action simvastatin 40 mg tablet 40 mg PO DAILY Qty: 20 0RF Aspir-81 81 mg Tablet,Delayed Release (Dr/Ec) 81 mg PO DAILY quetiapine [Seroquel] 200 mg tablet 200 mg PO BID Qty: 60 0RF quetiapine [Seroquel] 200 mg tablet 200 mg PO BID Qty: 60 0RF famotidine 40 mg tablet 40 mg PO BID Qty: 60 0RF Discharge Orders: Discharge ED (Routine); Ordered 05/05/24 Ordered By: Dion Faulkner Patient Instructions: Scabies (ED) Activity Restrictions/Additional Instructions: Permethrin as prescribed. Follow-up with primary care for reevaluation. Wash your close and any sheets that you have used in hot water. Avoid itching/scratching. Print Language: Citizen Of [place] Coding Level of Care Code ED Order Expediter for Luz Matias
[2024-05-05 17:24] VITALS: BP 143/90; PULSE 80; O2SAT 96
== END 2024-05-05 17:25 | disposition home or self-care (01) ==
PROVIDERS: Emergency Provider Physician Assistant
DX: Z76.0 Encounter for issue of repeat prescription (principal); B86 Scabies; Z72.0 Tobacco use; J44.9 Chronic obstructive pulmonary disease, unspecified
CPT/HCPCS: 99283

== ENCOUNTER 2024-05-17 14:02 | Emergency (ER) | payer SELFPAY ==
[2024-05-17 14:07] VITALS: BP 148/78; PULSE 88; RESP 16; TEMP 36.7; O2SAT 99; BMI 29.0
--- NOTE | 2024-05-17 16:22 | ED_ITS ---
HPI - General Adult General: Chief complaint: General Medical Stated complaint: refill of meds Time Seen by Provider: 05/17/24 15:17 History of Present Illness: Patient is a 64-year-old male that is known to this emergency department. He presents for medication refill. He states that he is here visiting his brother from [place] supposed to be returning home. He has [facility] records dating back to 2022. Patient was seen at the beginning of this month and was prescribed an ointment for scabies. Associated symptoms: Deny chest pain, dyspnea, headache(s), nausea, rash or vomiting Related Data Home Medications ?Medication ?Instructions ?Recorded ?Confirmed aspirin 81 mg tablet,delayed 81 mg PO QPM 11/12/22 release Previous Rx's ?Medication ?Instructions ?Recorded quetiapine 200 mg tablet (Seroquel) 200 mg PO BID #60 tabs 03/28/24 famotidine 40 mg tablet 40 mg PO BID #60 tabs permethrin 5 % topical cream 1 applic topical Q14D 2 d oses #60 05/05/24 grams triamcinolone acetonide 0.5 % 1 applic topical BID #15 grams 05/05/24 topical ointment quetiapine 200 mg tablet (Seroquel) 200 mg PO BID 30 d ays #60 tabs 05/17/24 triamcinolone acetonide 0.05 % 1 applic topical DAILY #110 grams 05/17/24 topical ointment Allergies Allergy/AdvReac Type Severity Reaction Status Date / Time Sulfa (Sulfonamide Allergy ADR-Agitate Verified 05/05/24 16:59 Antibiotics) d Review of Systems General: Reports: 10 or more systems reviewed and unremarkable except in HPI and below Const: Reports: other (Request for medication refill); Denies: fever(s) or chills Card: Denies: chest pain Resp: Denies: dyspnea GI: Denies: abdominal pain, nausea, vomiting or diarrhea Musc: Denies: extremity pain or joint pain Skin/Breast: Reports: pruritus and erythema; Denies: rash, skin pain, skin tenderness or new lesions Neuro: Denies: headache(s) [facility] ED PFSH: Medical History No pertinent family history COPD (chronic obstructive pulmonary disease) Bipolar 1 disorder Social History Smoking and tobacco/nicotine status: current every day tobacco/nicotine user Physical Exam Const: COMMON NORMALS: no acute distress, average body habitus, patient oriented x3, no limitations, healthy appearing, alert and well nourished HENMT: COMMON NORMALS: normocephalic and atraumatic HEAD & SCALP: normocephalic and atraumatic Neck/C-Spine: COMMON NORMALS: full ROM, no lymphadenopathy, supple and no meningeal signs Resp: COMMON NORMALS: normal respiratory effort, No use of accessory muscles and clear to auscultation bilaterally AUSCULTATION: clear to auscultation bilaterally Cardio: COMMON NORMALS: regular rate and regular rhythm RATE: regular rate RHYTHM: regular rhythm Extremity: COMMON NORMALS: full ROM and capillary refill normal Neuro: COMMON NORMALS: patient oriented x3 SENSORIUM/ORIENTATION: Yes alert MENINGEAL SIGNS: Yes no meningeal signs Psych: COMMON NORMALS: mental status grossly normal, Normal thought process present and cooperative THOUGHT PROCESS: Normal thought process present Skin: COMMON NORMALS: no wounds and turgor normal NARRATIVE SKIN EXAM: The patient's bilateral hands, there is scattered crusting and appearance of linear burrows between webspaces. Lichenification from prior itching GENERAL SKIN EXAM: turgor normal Course Vital Signs: Vital signs: Vital Signs Temperature 98.0 F 05/17/24 14:07 Pulse Rate 88 05/17/24 14:07 Respiratory Rate 16 05/17/24 14:07 Blood Pressure 148/78 05/17/24 14:07 Pulse Oximetry 99 05/17/24 14:07 Oxygen Delivery Me thod Room Air 05/17/24 14:07 MDM - General Adult Medical Decision Making Patient is going to be represcribed is triamcinolone as well as his therapy well. I am going to have a transplant case manager assist in setting up primary care No radiology studies performed this visit Discharge Plan Discharge Patient Disposition: Home Clinical Impression: Encounter for medication refill, Bipolar 1 disorder Condition: Stable Prescriptions: New quetiapine [Seroquel] 200 mg tablet 200 mg PO BID 30 Days Qty: 60 0RF Rx Instructions: No additional refills. triamcinolone acetonide 0.05 % ointment 1 applic topical DAILY Qty: 110 0RF Continued quetiapine [Seroquel] 200 mg tablet 200 mg PO BID Qty: 60 0RF No Action aspirin [Aspir-81] 81 mg Tablet,Delayed Release (Dr/Ec) 81 mg PO QPM famotidine 40 mg tablet 40 mg PO BID Qty: 60 1RF permethrin 5 % cream 1 applic topical Q14D Qty: 60 0RF Rx Instructions: apply second treatment 14 days after first treatment if live lice remain triamcinolone acetonide 0.5 % ointment 1 applic topical BID Qty: 15 0RF Discharge Orders: Discharge ED (Routine); Ordered 05/17/24 Ordered By: Moses Bruce Discharge Diet: Advance as tolerated Discharge Activity: Resume usual activity Patient Instructions: Pain Management Activity Restrictions/Additional Instructions: I have added a refill to your appointment. I have also sent a new prescription for your Seroquel. I have asked transplant case manager to assist in setting up primary care. I encourage you to do this because you need to have 1 provider managing your medications. Please utilize primary services for medication refills until you return home to [place]. Print Language: Polish Coding Level of Care Code ED Berry Picker Machine Operator for Luz Matias
[2024-05-17 16:38] VITALS: BP 148/93; PULSE 89; RESP 16; TEMP 36.9; O2SAT 98
--- NOTE | 2024-05-19 07:52 | DCPLANNER ---
Message ssent to clinics to establish PCP
== END 2024-05-17 16:39 | disposition home or self-care (01) ==
PROVIDERS: Emergency Provider Nurse Practitioner
DX: Z76.0 Encounter for issue of repeat prescription (principal); F31.9 Bipolar disorder, unspecified; Z72.0 Tobacco use; J44.9 Chronic obstructive pulmonary disease, unspecified
CPT/HCPCS: 99281

== ENCOUNTER 2024-07-04 13:23 | Emergency (ER) | payer SELFPAY ==
[2024-07-04 13:26] VITALS: BP 145/75; PULSE 99; RESP 16; TEMP 36.7; O2SAT 98
--- NOTE | 2024-07-04 13:51 | ED_ITS ---
HPI - General Adult General: Chief complaint: General Medical Stated complaint: medication refill Time Seen by Provider: 07/04/24 13:51 Source: patient Mode of arrival: ambulatory Limitations: no limitations History of Present Illness: 64yo male presents for refill on his ser oquel and famotidine. Patient reports that he will be traveling back home to [place] in the middle of the month. Patient states that he will ensure that this is not a habit that continues when he comes back to visit his brother from [place]. States that he has previously tried Tums and Rolaids for his acid reflux, but they are not as effective as the famotidine. Patient denies SI/HI/hallucinations, any other concerns at this time. Associated symptoms: Deny chest pain or dyspnea Related Data Home Medications ?Medication ?Instructions ?Recorded ?Confirmed aspirin 81 mg tablet,delayed 81 mg PO QPM 11/12/22 release Previous Rx's ?Medication ?Instructions ?Recorded permethrin 5 % topical cream 1 applic topical Q14D 2 d oses #60 05/05/24 grams triamcinolone acetonide 0.5 % 1 applic topical BID #15 grams 05/05/24 topical ointment triamcinolone acetonide 0.05 % 1 applic topical DAILY #110 grams 05/17/24 topical ointment famotidine 40 mg tablet 40 mg PO BID #60 tabs quetiapine 200 mg tablet 200 mg PO BID #60 tabs 07/04 Allergies Allergy/AdvReac Type Severity Reaction Status Date / Time Sulfa (Sulfonamide Allergy ADR-Agitate Verified 07/04/24 13:24 Antibiotics) d Review of Systems Const: Denies: fever(s) or chills Card: Denies: chest pain Resp: Denies: dyspnea Psych: Denies: visual hallucinations, auditory hallucinations, suicidal ideation or homicidal ideation PFS ED PFSH: Medical History No pertinent family history COPD (chronic obstructive pulmonary disease) Bipolar 1 disorder Social History Smoking and tobacco/nicotine status: current every day tobacco/nicotine user Physical Exam Const: COMMON NORMALS: no acute distress, patient oriented x3, alert and well nourished GENERAL APPEARANCE: cooperative ORIENTATION/CONSCIOUSNESS: Yes awake OTHER: Patient is sitting upright in a fast-track recliner in no acute distress. He is calm, cooperative, and able to give information with no difficulty. He is interactive with exam appropriately. No family present at this time. HENMT: COMMON NORMALS: normocephalic HEAD & SCALP: normocephalic Neck/C-Spine: COMMON NORMALS: full ROM Chest: CHEST: Yes Symmetrical chest wall rise Resp: COMMON NORMALS: normal respiratory effort, No use of accessory muscles and clear to auscultation bilaterally EFFORT & INSPECTION: Yes able to speak in complete sentences AUSCULTATION: clear to auscultation bilaterally Cardio: COMMON NORMALS: regular rate and regular rhythm RATE: regular rate RHYTHM: regular rhythm Extremity: COMMON NORMALS: full ROM Neuro: DOMINGA COMA SCALE: document GCS findings Dominga coma scale eye opening: Spontaneous Dominga coma scale verbal response: Orientated Dominga coma scale motor response: Obey commands Edwards coma scale total score: 15 COMMON NORMALS: patient oriented x3 SENSORIUM/ORIENTATION: Yes alert Psych: COMMON NORMALS: mental status grossly normal, cooperative, activity/motor behavior normal, denies hallucinations, denies homicidal ideation and denies suicidal ideation Course Vital Signs: Vital signs: Vital Signs Temperature 98.1 F 07/04/24 13:26 Pulse Rate 99 07/04/24 13:26 Respiratory Rate 16 07/04/24 13:26 Blood Pressure 145/75 07/04/24 13:26 Pulse Oximetry 98 07/04/24 13:26 Oxygen Delivery Me thod Room Air 07/04/24 13:26 MDM - General Adult Medical Decision Making 64yo male presents for refill on his seroquel and famotidine. Patient reports that he will be traveling back home to [place] in the middle of the month. Patient states that he will ensure that this is not a habit that continues when he comes back to visit his brother from [place]. States that he has previously tried Tums and Rolaids for his acid reflux, but they are not as effective as the famotidine. Patient denies SI/HI/hallucinations, any other concerns at this time. Patient is nontoxic in appearance. Vital signs are stable. Chart review reveals that patient has been seen in this ER 6 times previously beginning 11/05/2022 for refills of his Seroquel. His dates were 11/05/2022, 03/18/2023, 04/25/2023, 02/24/2024, 03/26/2024, 05/17/2024. These dates are consistent with his reported annual visit with his family. Patient does state t hat he will make every attempt to have his primary care prescribed enough prior to leaving [place] next time. Will proceed with refill of the Seroquel and famotidine. Encourage patient to follow-up with his primary care as soon as possible. Return precautions provided. Patient states understanding and has no further questions or concerns at this time. Medical Records I reviewed the patient's medical records. No radiology studies performed this visit Discharge Plan Discharge Patient Disposition: Home Clinical Impression: Encounter for medication refill, Bipolar 1 disorder, GERD (gastroesophageal reflux disease) Condition: Stable Prescriptions: New famotidine 40 mg tablet 40 mg PO BID Qty: 60 0RF quetiapine 200 mg tablet 200 mg PO BID Qty: 60 0RF Discontinued quetiapine [Seroquel] 200 mg tablet 200 mg PO BID Qty: 60 0RF famotidine 40 mg tablet 40 mg PO BID Qty: 60 1RF No Action triamcinolone acetonide 0.05 % ointment 1 applic topical DAILY Qty: 110 0RF aspirin [Aspir-81] 81 mg Tablet,Delayed Release (Dr/Ec) 81 mg PO QPM permethrin 5 % cream 1 applic topical Q14D Qty: 60 0RF Rx Instructions: apply second treatment 14 days after first treatment if live lice remain triamcinolone acetonide 0.5 % ointment 1 applic topical BID Qty: 15 0RF Discharge Orders: Discharge ED (Routine); Ordered 07/04/24 Ordered By: Nahum Mcneil Discharge Diet: Usual diet Discharge Activity: Resume usual activity Activity Restrictions/Additional Instructions: Refills of both your Seroquel and famotidine have been sent to the local pharmacy Please make every effort to follow-up with your primary care once you are back in [place] later this month Return to the emergency department as needed Print Language: [place] Coding Level of Care Code ED Mall Plant Caretaker for Luz Matias
[2024-07-04 14:25] VITALS: BP 137/82; PULSE 97; O2SAT 97
== END 2024-07-04 14:26 | disposition home or self-care (01) ==
PROVIDERS: Emergency Provider Nurse Practitioner
DX: Z76.0 Encounter for issue of repeat prescription (principal); F31.9 Bipolar disorder, unspecified; K21.9 Gastro-esophageal reflux disease without esophagitis; Z79.82 Long term (current) use of aspirin; Z72.0 Tobacco use; J44.9 Chronic obstructive pulmonary disease, unspecified
CPT/HCPCS: 99283

== ENCOUNTER 2025-03-16 12:22 | Emergency (ER) | payer SELFPAY ==
[2025-03-16 12:37] VITALS: BP 127/82; PULSE 78; RESP 15; TEMP 36.7; O2SAT 97; BMI 29.2
--- NOTE | 2025-03-16 12:44 | W.ED.GENADLT ---
HPI - General Adult General: Chief complaint: General Medical Stated complaint: needs meds refilled Time Seen by Provider: 03/16/25 12:36 Source: patient Mode of arrival: ambulatory Limitations: no limitations History of Present Illness: 64-year-old male states that he has ran out of his famotidine and that his physicians currently and they were not able to write him a new prescription. He has no other complaints at this time denies any pain anywhere Related Data Home Medications ?Medication ?Instructions ?Recorded ?Confirmed aspirin 81 mg tablet,delayed 81 mg PO QPM 11/12/22 05/17/24 release Previous Rx's ?Medication ?Instructions ?Recorded permethrin 5 % topical cream 1 applic topical Q14D 2 doses #60 05/05/24 grams triamcinolone acetonide 0.5 % 1 applic topical BID #15 grams 05/05/24 topical ointment triamcinolone acetonide 0.05 % 1 applic topical DAILY #110 grams 05/17/24 topical ointment quetiapine 200 mg tablet 200 mg PO BID #60 tabs 07/04/24 famotidine 40 mg tablet 40 mg PO BID #60 tabs 03/16/25 Allergies Allergy/AdvReac Type Severity Reaction Status Date / Time Sulfa (Sulfonamide Allergy ADR-Agitate Verified 03/16/25 12:41 Antibiotics) d PFSH ED PFSH: Medical History No pertinent family history COPD (chronic obstructive pulmonary disease) Bipolar 1 disorder Social History Smoking and tobacco/nicotine status: current every day tobacco/nicotine user Physical Exam Const: COMMON NORMALS: no acute distress, patient oriented x3 and healthy appearing HENMT: COMMON NORMALS: normocephalic and atraumatic HEAD & SCALP: normocephalic and atraumatic Neck/C-Spine: COMMON NORMALS: full ROM and supple Chest: COMMONS NORMALS: normal inspection of the chest Resp: COMMON NORMALS: normal respiratory effort Cardio: COMMON NORMALS: regular rate RATE: regular rate Extremity: COMMON NORMALS: normal to inspection and full ROM Neuro: COMMON NORMALS: patient oriented x3, moves all extremities and no focal motor deficits Psych: COMMON NORMALS: mental status grossly normal, Normal thought process present and cooperative THOUGHT PROCESS: Normal thought process present Skin: COMMON NORMALS: no rashes or lesions noted and no wounds GENERAL SKIN EXAM: no rashes or lesions noted Course Vital Signs: Vital signs: Vital Signs Temperature 98.0 F 03/16/25 12:37 Pulse Rate 78 03/16/25 12:37 Respiratory Rate 15 03/16/25 12:37 Blood Pressure 127/82 03/16/25 12:37 Pulse Oximetry 97 03/16/25 12:37 Oxygen Delivery Me thod Room Air 03/16/25 12:37 MDM - General Adult Medical Decision Making Patient presents here with refill for his fall amantadine will give him a month supply he has no other complaints stable for discharge Medical Records I reviewed the patient's medical records. No radiology studies performed this visit Discharge Plan Discharge Patient Disposition: Home Clinical Impression: Medication refill Condition: Stable Prescriptions: Continued famotidine 40 mg tablet 40 mg PO BID Qty: 60 0RF No Action triamcinolone acetonide 0.05 % ointment 1 applic topical DAILY Qty: 110 0RF aspirin [Aspir-81] 81 mg Tablet,Delayed Release (Dr/Ec) 81 mg PO QPM permethrin 5 % cream 1 applic topical Q14D Qty: 60 0RF Rx Instructions: apply second treatment 14 days after first treatment if live lice remain triamcinolone acetonide 0.5 % ointment 1 applic topical BID Qty: 15 0RF quetiapine 200 mg tablet 200 mg PO BID Qty: 60 0RF Discharge Orders: Discharge ED (Routine); Ordered 03/16/25 Ordered By: Pablo Manzanares Discharge Diet: Advance as tolerated Discharge Activity: Resume usual activity Patient Instructions: Medicine Refill (ED) Print Language: Kyrgyz Coding Level of Care Code ED Lubrication Equipment Servicer for Luz Matias
[2025-03-16 12:46] VITALS: O2SAT 98
--- OUTSIDE RECORDS SUMMARY | 2025-03-16 13:13 | XMS_ITS | Clinical Summary ---
Author Organization [facility] Address [address] [place] [address] Phone Care Team Providers Care Liner Reroll Tender Name Role Phone Unavailable Primary Care Provider Unavailabl e Allergies Active Allergy Reactions Criticality Noted Date Comments Sulfa (Sulfonamide Antibiotics) Confusion Low 07/31 Medications simvastatin (ZOCOR) 40 mg tablet Take 40 mg by mouth daily with supper. Active aspirin (ECOTRIN EC) 81 mg Tablet, Delayed Release (E.C.) Take 81 mg by mouth daily. Active QUEtiapine (SEROquel) 200 mg tablet Take 200 mg by mouth 2 times daily. Active raNITIdine (ZANTAC) 150 mg tablet Take 150 mg by mouth 2 times daily. Active Social History Tobacco Use Types Packs/Day Years Used Date Smoking Tobacco: Every Day Cigarettes Smokeless Tobacco: Never Alcohol Use Standard Drinks/Week Comments Yes 0 (1 standard drink = 0.6 oz pur e alcohol) 16 oz can of beer at night Sex and Gender Information Value Date Recorded Sex Assigned at Not on file Legal Sex Male 7:40 PM CDT Gender Identity Not on file Sexual Orientation Not on file Last Filed Vital Signs Vital Sign Reading Time Taken Comments Blood Pressure 119/75 11/11/2018 7:04 PM CDT Pulse - - Temperature 36.2 C (97.1 F) 11/11/2018 7:04 PM CDT Respiratory Rate 15 11/11/2018 7:04 PM CDT Oxygen Saturation 97% 11/11/2018 7:04 PM CDT Inhaled Oxygen Concentration - - Weight 65 kg (143 lb 6.4 oz) 11/11/2018 6:08 PM CDT Height 167.6 cm (5' 6 ) 11/11/2018 6:08 PM CDT Body Mass Index 23.15 11/11/2018 6:08 PM CDT Plan of Treatment Health Maintenance Due Date Last Done Comments COLORECTAL SCREENING 2006 Colorectal Cancer Screening 2006 FIT-DNA Q 3 years 2006 FIT/FOBT Q 1 year 2006 Flex Sig/CT Colonography Q 5 years 2006 ZOSTER VACCINE (1 of 2) 2011 DTAP/TDAP/TD VACCINES (2 - Td or Tdap) 08/01/2023 INFLUENZA VACCINE (#1) 2024 12/20/2015 RSV VACCINE (60+ or ) (1 - 1-dose 75+ series) 2036 Insurance [place]ICAID [place]
--- OUTSIDE RECORDS SUMMARY | 2025-03-16 13:13 | XMS_ITS | Clinical Summary ---
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 08/26/2018 Active QUEtiapine (SEROquel) 200 mg tablet Take 1 Tablet (200 mg) by mouth 2 times daily. 60 Tablet 1 05/16/2023 Active simvastatin (ZOCOR) 40 mg tablet Take 1 Tablet (40 mg) by mouth daily with supper. 30 Tablet 1 05/16/2023 Active Active Problems Problem Noted Date Diagnosed Date Encounter for medication refill 08/06/2022 Bipolar disorder 08/06/2022 Social History Tobacco Use Types Packs/Day Years Used Date Smoking Tobacco: Every Day Cigarettes Smokeless Tobacco: Never Tobacco Cessation:Ready to Q uit: Not Asked; Counseling Given: Not Answered Alcohol Use Standard Drinks/Week Comments Not Currently 0 (1 standard drink = 0.6 oz pur e alcohol) Feeling Safe Answer Date Recorded Are you in a relationship wi th someone who hurts you emotionally and/or physically? 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 Gender Identity Not on file Sexual Orientation Not on file Last Filed Vital Signs Vital Sign Reading Time Taken Comments Blood Pressure 134/82 05/16/2023 5:59 PM PROCUREMENT ASSISTANT Pulse 81 05/16/2023 5:59 PM PROCUREMENT ASSISTANT Temperature 36.9 C (98.4 F) 05/16/2023 5:59 PM PROCUREMENT ASSISTANT Respiratory Rate 18 05/16/2023 5:59 PM PROCUREMENT ASSISTANT Oxygen Saturation 98% 05/16/2023 5:59 PM PROCUREMENT ASSISTANT Inhaled Oxygen Concentration - - Weight 75.3 kg (166 lb) 05/16/2023 5:59 PM PROCUREMENT ASSISTANT Height 167.6 cm (5' 6 ) 05/16/2023 5:59 PM PROCUREMENT ASSISTANT Body Mass Index 26.79 05/16/2023 5:59 PM PROCUREMENT ASSISTANT Plan of Treatment Health Maintenance Due Date [...]
== END 2025-03-16 12:48 | disposition home or self-care (01) ==
PROVIDERS: Emergency Provider Emergency Medicine
DX: Z76.0 Encounter for issue of repeat prescription (principal); Z79.82 Long term (current) use of aspirin; Z72.0 Tobacco use; J44.9 Chronic obstructive pulmonary disease, unspecified
CPT/HCPCS: 99281